=== PATIENT | male | born 1990 | race Caucasian/White ===

== ENCOUNTER 2019-10-04 01:53 | Inpatient (IN) ==
[2019-10-04 02:17] LABS: Basophils % 0.4 %; Eosinophils # 0.1 K/mcL (0.0-0.6); Eosinophils % 1.5 %; Hematocrit 44.8 % (37.5-50.1); Hemoglobin 14.5 g/dL (12.9-16.9); Immature Granulocytes % 0.2 % (0-4); Lymphocytes # 2.9 K/mcL (0.6-4.6); Lymphocytes % 33.7 %; Mean Corpuscular HGB Conc 32.4 g/dL (31.6-35.5); Mean Corpuscular Volume 83.4 fL (83.0-100.0); Mean Platelet Volume 8.7 fL (9.4-12.4); Monocytes % 11.6 %; Neutrophils # 4.5 K/mcL (1.6-8.9); Platelet Count 291 K/mcL (140-400); Red Blood Count 5.37 M/mcL (4.19-5.50); Red Cell Distribution Width 13.2 % (11.5-14.5); Segmented Neutrophils % 52.6 %; White Blood Count 8.6 K/mcL (4.3-11.1)
[2019-10-04] MEDS ORDERED: Ibuprofen 600 MG TABLET PO ONE (02:21)
[2019-10-04 02:25] LABS: Bilirubin,Urine Small (Negative); Blood,Urine Negative (Negative); Clarity,Urine Clear (Clear); Color,Urine Dark Yellow (Yellow); Glucose,Urine (UA) Normal (Normal); Ketones,Urine Trace mg/dL (Negative); Leukocyte Esterase,Urine Trace (Negative); Nitrite,Urine Negative (Negative); Protein,Urine Trace mg/dL (Neg-Trace); Specific Gravity,Urine > 1.030 (1.010-1.025); Urobilinogen,Urine Normal (Normal)
[2019-10-04 02:27] LABS: Bacteria,Urine None Seen per hpf (None-Few); Hyaline Casts,Urine None Seen per lpf (None-Few); RBC,Urine 0-3 per hpf (0-3); Squamous Epithelial Cell,Urine Moderate per lpf (None-Few); WBC,Urine 0-3 per hpf (0-3)
[2019-10-04 02:39] LABS: Acetaminophen < 10 mcg/mL (10-20); BUN/Creatinine Ratio 13 (6-26); Blood Urea Nitrogen 14 mg/dL (6-20); Calcium 10.1 mg/dL (8.6-10.3); Carbon Dioxide 31 mEq/L (23-29); Chloride 98 mEq/L (98-107); Ethanol < 10 mg/dL (Less than 10); Glucose 112 mg/dL (70-105); Osmolality,Calculated 283 (280-300); Potassium 3.4 mEq/L (3.5-5.1); Salicylate < 2.5 mg/dL (15.0-30.0); Sodium 136 mEq/L (136-145); eGFR For African Americans > 60 (> 60); eGFR For Non-African Americans > 60 (> 60)
[2019-10-04 02:40] LABS: Amphetamine Screen,Urine Positive ng/mL (Cutoff=1000); Barbiturate Screen,Urine Negative ng/mL (Cutoff=200); Benzodiazepines Screen,Urine Negative ng/mL (Cutoff=200); Cannabinoid Screen,Urine Positive ng/mL (Cutoff = 50); Cocaine Screen,Urine Negative ng/mL (Cutoff= 300); Opiate Screen,Urine Positive ng/mL (Cutoff=300); Phencyclidine Screen,Urine Negative ng/mL (Cutoff=25)
[2019-10-04] MEDS ORDERED: 0.9 % Sodium Chloride 1,000 ML IVC ONE (02:40)
[2019-10-04] MEDS ORDERED: Isovue-370 500 ML BOTTLE IVP ONE (02:42)
[2019-10-04 03:03] LABS: Mucus,Urine Few per lpf (Few)
[2019-10-04 03:19] LABS: C-Reactive Protein 34 mg/L (Less than 10)
[2019-10-04] MEDS ORDERED: *HR* LORazepam 1 MG TABLET PO PRN (05:57)
[2019-10-04] MEDS ORDERED: *HR* LORazepam 2 MG/ML VIAL IM PRN (05:57)
[2019-10-04] MEDS ORDERED: Haloperidol Lactate 5 MG/ML VIAL IM PRN (05:57)
[2019-10-04] MEDS ORDERED: MOM Conc 10 ML UD.LIQ PO PRN (05:57)
[2019-10-04] MEDS ORDERED: haloperidoL 5 MG TABLET PO PRN (05:57)
[2019-10-04] MEDS ORDERED: Nicotine 2 MG GUM BC PRN (05:57)
[2019-10-04] MEDS ORDERED: Ibuprofen 400 MG TABLET PO PRN (05:57)
[2019-10-04] MEDS ORDERED: hydrOXYzine pamoate 25 MG CAPSULE PO PRN (05:57)
[2019-10-04] MEDS ORDERED: traZODone 50 MG TABLET PO PRN (05:57)
[2019-10-04] MEDS ORDERED: Mag Hydrox/Al Hydrox/Simeth 30 ML UDC PO PRN (05:57)
[2019-10-04] MEDS ORDERED: OLANZapine 10 MG TAB.RAPDIS PO STA (07:07)
[2019-10-04] MEDS ORDERED: *HR* LORazepam 2 MG/ML VIAL IM ONE (07:41)
[2019-10-04] MEDS ORDERED: *HR* Buprenorphine HCl 8 MG TAB.SUBL SL SCH (09:45)
[2019-10-04] MEDS ORDERED: *HR* LORazepam 1 MG TABLET PO SCH (12:00)
[2019-10-04] MEDS ORDERED: chlorproMAZINE 25 MG TABLET PO PRN (13:04)
[2019-10-04 14:27] VITALS: BP 120/66
[2019-10-04] MEDS ORDERED: Gabapentin 300 MG CAPSULE PO SCH (15:00)
[2019-10-04] MEDS ORDERED: Dexmedetomidine HCl 400 MCG/100 ML MLS IVC SCH (17:00)
[2019-10-04] MEDS ORDERED: OLANZapine 5 MG TAB.RAPDIS PO SCH (21:00)
[2019-10-05] MEDS ORDERED: *HR* LORazepam 1 MG TABLET PO SCH (12:00)
[2019-10-06] MEDS ORDERED: *HR* LORazepam 1 MG TABLET PO SCH (12:00)
[2019-10-07] MEDS ORDERED: *HR* LORazepam 1 MG TABLET PO SCH (12:00)
[2019-10-08] MEDS ORDERED: *HR* LORazepam 1 MG TABLET PO SCH (12:00)
[2019-10-09] MEDS ORDERED: *HR* LORazepam 1 MG TABLET PO SCH (09:00)
== END 2019-10-04 18:05 | disposition other institution (70) ==
LOC: EMEROOARM 01:53 → 1ANU 05:56
PROVIDERS: ADMIT Psychiatry & Neurology Psychiatry; ATTEND Psychiatry & Neurology Psychiatry

== ENCOUNTER 2019-10-04 16:46 | Inpatient (IN) ==
[2019-10-04] MEDS ORDERED: Naloxone 0.4 MG/ML INJ IVP PRN (16:59)
[2019-10-04] MEDS ORDERED: *HR* LORazepam 2 MG/ML VIAL IVP ONE (17:59)
[2019-10-04] MEDS: Dexmedetomidine HCl 400 MCG/100 ML MLS IVC SCH (18:18)
[2019-10-04 19:24] LABS: Basophils % 0.3 %; Eosinophils # 0.1 K/mcL (0.0-0.6); Eosinophils % 0.9 %; Hematocrit 38.8 % (37.5-50.1); Immature Granulocytes % 0.1 % (0-4); Lymphocytes # 2.7 K/mcL (0.6-4.6); Lymphocytes % 40.9 %; Mean Corpuscular HGB Conc 33.2 g/dL (31.6-35.5); Mean Corpuscular Hemoglobin 27.7 pg (28.0-33.3); Mean Corpuscular Volume 83.3 fL (83.0-100.0); Mean Platelet Volume 9.7 fL (9.4-12.4); Monocytes # 0.7 K/mcL (0.0-1.3); Monocytes % 10.8 %; Neutrophils # 3.1 K/mcL (1.6-8.9); Platelet Count 265 K/mcL (140-400); Red Blood Count 4.66 M/mcL (4.19-5.50); Red Cell Distribution Width 13.3 % (11.5-14.5); White Blood Count 6.7 K/mcL (4.3-11.1)
[2019-10-04 19:26] LABS: Hemoglobin 12.9 g/dL (12.9-16.9)
[2019-10-04 19:38] LABS: Alanine Aminotransferase 32 Units/L (7-52); Albumin 4.5 g/dL (3.5-5.7); Albumin/Globulin Ratio 1.6 (1.1-2.2); Alkaline Phosphatase 58 Units/L (34-104); Aspartate Amino Transferase 36 Units/L (13-39); BUN/Creatinine Ratio 12 (6-26); Bilirubin,Total 0.9 mg/dL (0.3-1.0); Blood Urea Nitrogen 13 mg/dL (6-20); Calcium 9.8 mg/dL (8.6-10.3); Carbon Dioxide 24 mEq/L (23-29); Chloride 103 mEq/L (98-107); Creatine Kinase 261 Units/L (30-223); Globulin 2.8 g/dL (2.4-3.5); Glucose 84 mg/dL (70-105); Lactate Dehydrogenase 182 Units/L (140-271); Osmolality,Calculated 285 (280-300); Potassium 3.5 mEq/L (3.5-5.1); Sodium 138 mEq/L (136-145); Total Protein 7.3 g/dL (6.4-8.9); eGFR For African Americans > 60 (> 60); eGFR For Non-African Americans > 60 (> 60)
[2019-10-04 19:45] LABS: Thyroid Stimulating Hormone 0.473 mcIU/mL (0.340-5.600)
[2019-10-04] MEDS: *HR* Heparin 5,000 UNIT/ML VIAL SQ SCH (21:02)
[2019-10-05] MEDS: Dexmedetomidine HCl 400 MCG/100 ML MLS IVC SCH (04:17)
[2019-10-05] MEDS: *HR* Heparin 5,000 UNIT/ML VIAL SQ SCH ×3 (04:19→21:07)
[2019-10-05] MEDS ORDERED: Dextrose Gel 15 GM/37.5 ML TUBE PO PRN ×2 (06:33)
[2019-10-05] MEDS ORDERED: D5% in Water 1,000 ML IVC PRN (06:33)
[2019-10-05] MEDS: *HR* Dextrose 50 % in Water (Syg) 50 ML SYRINGE IVP PRN ×2 (06:49→23:57)
[2019-10-05 08:41] LABS: Bilirubin,Urine Negative (Negative); Blood,Urine Negative (Negative); Clarity,Urine Clear (Clear); Color,Urine Dark Yellow (Yellow); Glucose,Urine (UA) Normal (Normal); Ketones,Urine 40 mg/dL (Negative); Leukocyte Esterase,Urine Negative (Negative); Nitrite,Urine Negative (Negative); Protein,Urine Negative (Neg-Trace); Specific Gravity,Urine 1.023 (1.010-1.025); Urobilinogen,Urine Normal (Normal)
[2019-10-05] MEDS ORDERED: *HR* LORazepam 2 MG/ML VIAL IVP SCH (12:00)
[2019-10-05] MEDS: Ringers Solution, Lactated 1,000 ML IVC SCH ×2 (12:23→21:08)
[2019-10-05] MEDS: *HR* LORazepam 2 MG/ML VIAL IVP SCH (21:00)
[2019-10-06] MEDS: *HR* Heparin 5,000 UNIT/ML VIAL SQ SCH ×3 (05:07→21:51)
[2019-10-06] MEDS: *HR* Dextrose 50 % in Water (Syg) 50 ML SYRINGE IVP PRN (07:30)
[2019-10-06] MEDS: Ringers Solution, Lactated 1,000 ML IVC SCH (07:31)
[2019-10-06] MEDS ORDERED: BUPRENORPHINE HCL SL SCH (09:45)
[2019-10-06] MEDS ORDERED: NALOXONE HCL SL SCH (09:45)
[2019-10-06] MEDS: *HR* LORazepam 2 MG/ML VIAL IVP SCH ×2 (09:58→21:55)
[2019-10-06] MEDS: Acetaminophen 325 MG TABLET PO PRN (14:04)
[2019-10-06] MEDS ORDERED: *HR* OxyCODONE Immed Rel 5 MG TABLET PO PRN (15:22)
[2019-10-06] MEDS: *HR* LORazepam 2 MG/ML VIAL IVP PRN (17:36)
[2019-10-06] MEDS: *HR* Buprenorphine HCl 8 MG TAB.SUBL SL SCH (18:27)
[2019-10-06] MEDS ORDERED: lamoTRIgine 100 MG TABLET PO SCH (21:00)
[2019-10-07] MEDS: *HR* LORazepam 2 MG/ML VIAL IVP PRN (00:14)
[2019-10-07] MEDS: Acetaminophen 325 MG TABLET PO PRN ×2 (00:14→08:18)
[2019-10-07] MEDS: *HR* Heparin 5,000 UNIT/ML VIAL SQ SCH ×2 (05:47→14:33)
[2019-10-07] MEDS: Ringers Solution, Lactated 1,000 ML IVC SCH (06:30)
[2019-10-07] MEDS ORDERED: lamoTRIgine 100 MG TABLET PO SCH (08:00)
[2019-10-07] MEDS: *HR* LORazepam 2 MG/ML VIAL IVP SCH (08:08)
[2019-10-07] MEDS ORDERED: *HR* LORazepam 0.5 MG TABLET PO PRN (15:49)
[2019-10-07] MEDS: *HR* Buprenorphine HCl 8 MG TAB.SUBL SL SCH (17:15)
[2019-10-07] MEDS ORDERED: *HR* LORazepam 2 MG/ML VIAL IVP SCH (21:00)
[2019-10-07] MEDS ORDERED: *HR* LORazepam 0.5 MG TABLET PO SCH (21:00)
[2019-10-08 14:57] VITALS: BP 113/73
[2019-10-08 15:47] LABS: HCV Quant Log 6.33 log IU/mL
[2019-10-09 10:38] LABS: HCV Quant Interpretation DETECTED (Not Detected)
== END 2019-10-07 19:02 | disposition left against medical advice (07) | DRG 770 ==
LOC: 3NENU → 3ANU 10-05 15:58
PROVIDERS: ADMIT Internal Medicine; ATTEND Internal Medicine